=== PATIENT | female | born 1955 | race African-American/Black ===

== ENCOUNTER 2016-10-31 22:27 | Emergency (ER) | payer BC ==
[2016-10-31 22:30] VITALS: BP 127/83
--- NOTE | 2016-10-31 22:34 | ED.ADGEN ---
Adult General Chief Complaint Chief Complaint Sore on hands [facility] HPI Patient is a 60 year old and [place] female who presents with is on the dorsum of bilateral hands. 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 She states the skin on the dorsum of her right hand is been getting thicker over the last several weeks and is started to get dry and chapped now. She denies any fevers chills nausea or vomiting. She states now that same thing started happen on the left hand. Review of Systems Review of Systems Constitutional: Denies fever or chills [] Eyes: Denies change in visual acuity, redness, or eye pain [] HENT: Denies nasal congestion or sore throat [] Respiratory: Denies cough or shortness of breath [] Cardiovascular: No additional information not addressed in HPI [] GI: Denies abdominal pain, nausea, vomiting, bloody stools or diarrhea [] : Denies dysuria or hematuria [] Musculoskeletal: Denies back pain or joint pain [] Integument: Positive for skin lesions on bilateral hands Neurologic: Denies headache, focal weakness or sensory changes [] Endocrine: Denies polyuria or polydipsia [] Physical Exam Physical Exam Constitutional: Well developed, well nourished, no acute distress, non-toxic appearance. [] HENT: Normocephalic, atraumatic, bilateral external ears normal, oropharynx moist, no oral exudates, nose normal. [] Eyes: PERRLA, EOMI, conjunctiva normal, no discharge. [] Neck: Normal range of motion, no tenderness, supple, no stridor. [] Cardiovascular:Heart rate regular rhythm, no murmur [] Lungs & Thorax: Bilateral breath sounds clear to auscultation [] Abdomen: Bowel sounds normal, soft, no tenderness, no masses, no pulsatile masses. [] Skin: Thick skin lesions over the dorsum of right hand that's approximately 7 x 6 cm with multiple cracks. 1 x 2 cm thick skin lesions over the dorsum of the left hand. Back: No tenderness, no CVA tenderness. [] Extremities: No tenderness, no cyanosis, no clubbing, ROM intact, no edema. [] Neurologic: Alert and oriented X 3, normal motor function, normal sensory function, no focal deficits noted. [] Psychologic: Affect normal, judgement normal, mood normal. [] EKG EKG [] Radiology/Procedures Radiology/Procedures [] Course & Med Decision Making Course & Med Decision Making Pertinent Labs and Imaging studies reviewed. (See chart for details) She will need to use Eucerin cream on her hands after she completes partially five-day course of triple antibiotic ointment apply to hands 3 times daily. She can wear mittens at night to help protect her hands and she is instructed to keep her hands dry while at work. Return precautions given she is agreeable to the plan and being discharged in stable condition this time. Tetanus was updated. Final Impression Final Impression Dry Skin of bilateral hands Problems: Dragon Disclaimer Dragon Disclaimer This electronic medical record was generated, in whole or in part, using a voice recognition dictation system. SHANNON HARDY MD October 31, 2016 22:34
[2016-10-31] MEDS ORDERED: DIPHTH,PERTUSS(ACELL),TET TOX 0.5 ML DISP.SYRIN. VAX IM ONE (23:45)
== END 2016-11-01 00:05 | disposition home or self-care (01) ==
LOC: ER 22:27
DX: L85.3 Xerosis cutis (principal)
CPT/HCPCS: 99281

== ENCOUNTER → 2017-09-11 | Outpatient (CLI) | payer BC ==
--- NOTE | 2017-09-11 12:43 | RAD ---
DATE: 09/11/2017 EXAM: DIGITAL SCREEN BILAT W/CAD HISTORY: Routine screening COMPARISON: 03/08/2015 This study was interpreted with the benefit of Computerized Aided Detection (CAD). The breast parenchyma shows scattered fibroglandular densities. Breast parenchyma level B. FINDINGS: No new or enlarging breast densities are seen. Minimal benign type calcification is present. No suspicious microcalcifications have developed. IMPRESSION: Stable mammograms without evidence of malignancy. BI-RADS CATEGORY: 2 BENIGN FINDING(S) RECOMMENDED FOLLOW-UP: 12M 12 MONTH FOLLOW-UP PQRS compliance statement: Patient information was entered into a reminder system with a target due date for the next mammogram. Mammography is a sensitive method for finding small breast cancers, but it does not detect them all and is not a substitute for careful clinical examination. A negative mammogram does not negate a clinically suspicious finding and should not result in delay in biopsying a clinically suspicious abnormality. "Our facility is accredited by the [employer] Mammography Program."
== END | disposition home or self-care (01) ==
LOC: MAMMO 08:41
PROVIDERS: ATTEND Internal Medicine
DX: Z12.31 Encounter for screening mammogram for malignant neoplasm of breast (principal)
CPT/HCPCS: 77067

== ENCOUNTER → 2018-10-13 | Outpatient (CLI) | payer BC ==
--- NOTE | 2018-10-14 17:53 | RAD ---
DATE: 10/13/2018 EXAM: MAMMO JOSE SCREENING BILATERAL HISTORY: Routine screening COMPARISON: November 05, 2014 and 09/11/2017 mammographic exams This study was interpreted with the benefit of Computerized Aided Detection (CAD). Breast Density: SCATTERED The breast parenchyma shows scattered fibroglandular densities. Breast parenchyma level B. FINDINGS: Parenchymal distribution is stable. No new masses or distortion. IMPRESSION: Stable BI-RADS CATEGORY: 1 NEGATIVE RECOMMENDED FOLLOW-UP: 12M 12 MONTH FOLLOW-UP PQRS compliance statement: Patient information was entered into a reminder system with a target due date in one year for the next mammogram. Mammography is a sensitive method for finding small breast cancers, but it does not detect them all and is not a substitute for careful clinical examination. A negative mammogram does not negate a clinically suspicious finding and should not result in delay in biopsying a clinically suspicious abnormality. "Our facility is accredited by the [employer] Mammography Program."
== END | disposition home or self-care (01) ==
LOC: MAMMO 08:41
PROVIDERS: ATTEND Internal Medicine
DX: Z12.31 Encounter for screening mammogram for malignant neoplasm of breast (principal)
CPT/HCPCS: 77063; 77067

== ENCOUNTER → 2019-10-15 | Outpatient (CLI) | payer BC, MEDICARE | LOC: MAMMO 08:01 | PROVIDERS: ATTEND Internal Medicine | DX: Z12.31 Encounter for screening mammogram for malignant neoplasm of breast (principal) | CPT/HCPCS: 77067 ==

== ENCOUNTER → 2021-07-19 | Outpatient (CLI) | payer BC, MEDICARE ==
--- NOTE | 2021-07-19 15:20 | RAD ---
EXAM: Bilateral knees, 3 views. HISTORY: Pain. COMPARISON: None. FINDINGS: Right knee: 3 views of the right knee are obtained. There is severe medial compartment joint space na rrowing, subchondral scoliosis and spurring. There is mild patellofemoral compartment spurring. There is a small joint effusion. There is enthesopathy along the patella. There is internal fixation of a healed femoral fracture, partially included on the [id number]. There is genu varus. Left knee: 3 views of the left knee are obtained. There is severe medial compartment joint space narr owing, subchondral sclerosis and spurring. There is mild lateral and patellofemoral compartment spurr ing. There is trace joint fluid. There are joint loose bodies. There is enthesopathy along the patell a. There is mild genu varus. IMPRESSION: 1. 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 2. Small left knee joint loose bodies. 3. Internal fixation of a healed right femoral fracture. Electronically signed by: Katrina Dumont MD (07/19/2021 3:18 PM) [id number]
--- NOTE | 2021-07-19 15:20 | RAD ---
EXAM: Bilateral knees, 3 views. HISTORY: Pain. COMPARISON: None. FINDINGS: Right knee: 3 views of the right knee are obtained. There is severe medial compartment joint space na rrowing, subchondral scoliosis and spurring. There is mild patellofemoral compartment spurring. There is a small joint effusion. There is enthesopathy along the patella. There is internal fixation of a healed femoral fracture, partially included on the [id number]. There is genu varus. Left knee: 3 views of the left knee are obtained. There is severe medial compartment joint space narr owing, subchondral sclerosis and spurring. There is mild lateral and patellofemoral compartment spurr ing. There is trace joint fluid. There are joint loose bodies. There is enthesopathy along the patell a. There is mild genu varus. IMPRESSION: 1. 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 2. Small left knee joint loose bodies. 3. Internal fixation of a healed right femoral fracture. Electronically signed by: Katrina Dumont MD (07/19/2021 3:18 PM) [id number]
== END ==
LOC: RAD 14:52
PROVIDERS: ATTEND Orthopaedic Surgery Sports Medicine
DX: M17.0 Bilateral primary osteoarthritis of knee (principal); M21.162 Varus deformity, not elsewhere classified, left knee; M21.161 Varus deformity, not elsewhere classified, right knee; M76.892 Other specified enthesopathies of left lower limb, excluding foot; M76.891 Other specified enthesopathies of right lower limb, excluding foot
CPT/HCPCS: 73565; 73560-50